=== PATIENT | female | born 1975 | race Caucasian/White ===

== ENCOUNTER 2017-12-12 09:26 | Day surgery (SDC) | payer OTHER ==
[2017-12-12] MEDS: BUPIVACAINE 0.5% 30 ML VIAL INJ
[2017-12-12] MEDS: LIDOCAINE 1% (MPF) 30 ML INJ INJ
[~2017-12-12 09:26] MED LIST: ATROPINE 1 MG/10 ML SYRINGE IV; DIPHENHYDRAMINE 50 MG INJ IV; EPHEDrine SULFATE 50 MG/5 ML SYG IV; FENTAnyl 50 MCG/ML VIAL IV; HYDROmorphONE (0.2 MG/ML) 10ML SYG IV; LABETALOL HCL 20MG INJ IV; LACTATED RINGER'S 1,000 ML IV; MIDAZOLAM 1 MG/ML 2 ML INJ IV; OXYCODONE/ACETAMINOPHEN (5/325) TAB PO; SOD CHLORIDE 0.9% 1,000 ML IV; SUCCINYLCHOLINE CHLORIDE 100 MG/5 ML SYG IV; hydrALAzine 20 MG INJ IV; metroNIDAZOLE 500 MG/100 ML NS IVPB; metroNIDAZOLE 500 MG/NS (PMX) 100 ML IVPB; morphine (1 MG/ML) 10ML SYRINGE IV
[2017-12-12] MEDS ORDERED: GLYCOPYRROLATE 0.4 MG INJ (11:00)
[2017-12-12] MEDS ORDERED: NEOSTIGMINE 3 MG/3 ML SYRINGE (11:00)
[2017-12-12] MEDS ORDERED: PROPOFOL 20 ML (11:00)
[2017-12-12] MEDS ORDERED: ROCURONIUM 50 MG INJ (11:00)
[2017-12-12] MEDS ORDERED: MIDAZOLAM 1 MG/ML 2 ML INJ (11:00)
[2017-12-12] MEDS ORDERED: DEXAMETHASONE 4 MG/ML 1 ML INJ (11:00)
[2017-12-12] MEDS ORDERED: FENTAnyl 50 MCG/ML VIAL (11:00)
[2017-12-12] MEDS ORDERED: LIDOCAINE 2% (SDV) 5 ML INJ (11:00)
[2017-12-12] MEDS ORDERED: ONDANSETRON 4 MG INJ (11:01)
[2017-12-12] MEDS ORDERED: LIDOCAINE 1% (MPF) 30 ML INJ (11:04)
[2017-12-12] MEDS: MEPERIDINE 25 MG INJ IV (13:09)
[2017-12-12] MEDS: ONDANSETRON 4 MG INJ IV (13:17)
[2017-12-12] MEDS: HYDROmorphONE (0.2 MG/ML) 10ML SYG IV ×2 (13:33→13:40)
== END 2017-12-12 15:10 | disposition home or self-care (01) ==
LOC: SDS 09:26
DX: K60.2 Anal fissure, unspecified (principal); E11.9 Type 2 diabetes mellitus without complications
CPT/HCPCS: 46200; 82962; 84703

== ENCOUNTER 2018-03-06 11:03 | Day surgery (SDC) | payer OTHER ==
[2018-03-06] MEDS ORDERED: PROPOFOL 20 ML (12:16)
== END 2018-03-06 13:24 | disposition home or self-care (01) ==
LOC: GIL 11:03
DX: K29.30 Chronic superficial gastritis without bleeding (principal); K21.9 Gastro-esophageal reflux disease without esophagitis; E11.9 Type 2 diabetes mellitus without complications
CPT/HCPCS: 43239; 82962; 88305; 88312